=== PATIENT | female | born 2000 | race Caucasian/White ===

== ENCOUNTER → 2019-12-17 15:03 | Outpatient (CLI) | payer MEDICAID, SELFPAY ==
[2017-08-06 16:46] VITALS: BMI 32.3
[2019-12-17 16:24] LABS: hCG Titer Quant., Serum < 1 mIU/mL (1-3)
[2019-12-17 17:02] LABS: Probe Check PASS; Sample Adequacy Control PASS; Specimen Processing Control PASS; Trichomonas Vag DNA by PCR Negative (Negative)
[2019-12-17 17:26] LABS: Chlamydia Trachomatis by PCR Negative (Negative); Neisserai gonorrhoeae by PCR Negative (Negative); Probe Check PASS; Sample Adequacy Control PASS; Specimen Processing Control PASS
[2019-12-17 18:26] LABS: Free T3 3.3 pg/mL (2.18-3.98); T4 Free Direct 1.12 ng/dL (0.76-1.46); T4 Total, Thyroxin 12.2 ug/dL (4.8-13.9); Thyroid Stim Hormone (TSH) 1.54 uIU/mL (0.358-3.74)
[2019-12-18 02:10] LABS: Rapid Plasmin Reagin (RPR) NONREACTIVE (NONREACTIVE)
[2019-12-18 08:56] LABS: HIV - WCH Non-Reactive (Nonreactive); Hepatitis B Surface Antibody Non-Reactive
[2019-12-18 08:59] LABS: Hepatitis C Antibody REACTIVE (Nonreactive)
[2019-12-19 16:49] LABS: HSV 2 IgG 1.22 index (0.00-0.90)
[2019-12-20 03:07] LABS: HCV Quant. RNA PCR 130 IU/mL (.)
[2019-12-20 15:08] LABS: HCV log 10 2.114 (.)
== END ==
PROVIDERS: Visit Provider Obstetrics & Gynecology
DX: Z11.3 Encounter for screening for infections with a predominantly sexual mode of transmission (principal)
CPT/HCPCS: 36415; 84436; 84439; 84443; 84481; 84702; 86592; 86695; 86696; 86703; 86706; 86803; 87491; 87522; 87591; 87661

== ENCOUNTER 2019-12-29 09:00 | Outpatient (RCR) | payer MEDICAID, SELFPAY ==
[2017-08-06 16:46] VITALS: BMI 32.3
--- NOTE | 2019-12-29 09:00 | BH.COMM ---
Communication Note - Communication with Client Communication Note: Met with pt to complete intial paperwork. Also completed [place] Suicide Scale. Pt reports suicidal ideations which has been more frequent in the past week. Denies any active suicidal ideations, plan, or intent. Reports that she has thought about methods which primarily involve a gun in the past week. Reports that she does have access to a gun which is her father-in law's. We talked further and currently she is able to contract for safety, is future-oriented, and has protective factors. Hopeful and optimistic about IOP. Smiling and engaged. Call was placed to [id number] who reports that gun has a trigger lock and pt does not have access to the merritt.
--- NOTE | 2019-12-29 09:05 | BH.SGPN.GN ---
Behaviors/Verbalizations/Mental Status: []Eye contact is good. Motor activity is appropriate. Appearance is casual. Speech is Appropriate. Mood is anxious. Affect is congruent. Thoughts are linear and logical. No evidence of psychosis. Client Response/Progress/Benefit: []Client responded well to session, receptive to supportive feedback and engaged throughout session. Client reports feeling anxious today as client shared being in group situations gives client anxiety. Client received positive feedback from peers who offered client hope that anxiety will decrease. Client reports she came to IOP to learn how to better manage her anxiety and chronic suicidal ideations. Client shared she is also a recovering addict and client hopes IOP will give her tools to manage cravings to use. Client stated she has been sober for almost two months and she sees a therapist a [facility]. Client shared her aldo and her cat keeps client from acting on her suicidal thoughts. Appeared to benefit from connecting with peers and normalizing her emotions. Will continue IOP tx to prevent decompensation, maintain safety, and improve mood stability. Narrative Note: []
--- NOTE | 2019-12-29 10:08 | BH.SGPN.GN ---
Behaviors/Verbalizations/Mental Status: []Client alert and oriented, casually dressed and groomed. Eye contact good. Motor activity appropriate. Speech within normal limits. Affect congruent, mood anxious and depressed. Thoughts linear, logical, no signs of hallucinations or delusions. Client Response/Progress/Benefit: []Pt receptive to session, participating throughout. Provided input as the group brainstormed the positive and negative aspects of stress on physical and mental health. Group noted that distress can cause physical health impacts, result in increased negative thinking, lead to further avoidance, and impact emotion regulation. Shared benefits of stress as: increased motivation, improved resilience, improved self-esteem, and personal growth. Client?s current stressors included upcoming court date, maintaining sobriety, family issues, mental health, finances, and the current COVID-19 pandemic. Client reports belief that her stress jar is currently overflowing and impacting her ability to manage mental health sx. Client stated when stress is too high client would turn to substance use in the past. Appeared to benefit from gaining awareness of own current stressors and learning about the impact stress has on overall wellbeing. Progress noted as shown by client?s increased engagement in group. Recommend continued IOP tx to promote use of healthy coping skills, maintain sobriety, and to further reduce mental health symptoms. Narrative Note: []
--- NOTE | 2019-12-29 11:10 | BH.SGPN.GN ---
Behaviors/Verbalizations/Mental Status: []Client alert and oriented, casually dressed and groomed. Eye contact fair. Motor activity appropriate. Speech within normal limits. Affect congruent, mood anxious. Thoughts linear, logical, no signs of hallucinations or delusions. Client Response/Progress/Benefit: []Pt engaged participant in session as evidenced by pt listening attentively to others and providing input throughout session. Pt reported she currently john with stress by making music, texting friends, making art, playing with cat and coloring. Pt stated in the past she used drugs as her way of coping with stress. Pt could connect how unhealthy ways of coping with stress like avoidance and drugs increase stress level. Pt actively listening during discussion about the 4 A's of managing stress. Pt identified she will work on avoiding taking on others problems by setting boundaries. Pt seemed to benefit from increased awareness of the impact of stress on mental health and increasing repertoire of stress management strategies. Pt's first day in IOP. Pt to continue in IOP to prevent decompensation, increase healthy coping skills, and maintain sobriety. Narrative Note: []
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
[2019-12-31 10:35] VITALS: BP 120/62; PULSE 96; RESP 14
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
--- NOTE | 2019-12-31 11:50 | BH.PSY.EVA_ITS ---
Initial Treatment Plan - Patient Information Visit Information: ADMISSION DATE: EXPECTED LOS: 4-6 weeks - Problems/Symptoms Problem #1:: Depression Symptom:: Sadness, anhedoia, hopelessness, biological disruption of sleep, flee ting suicidal ideation Problem #2:: ANxiety Symptom:: WOrry, panic attacks, flashbacks, re-experiencing Problem #3:: chronic hallucinations Symptom:: self-harm thoughts, sucidal ideation
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
--- NOTE | 2020-01-02 09:10 | BH.SGPN.GN ---
Behaviors/Verbalizations/Mental Status: []Client alert and oriented, casual dress, hygiene tended to. Eye contact fair. Motor activity appropriate. Speech within normal limits. Affect congruent, mood anxious. Thoughts linear, logical, no signs of hallucinations or delusions. Reviewed client?s symptom tracker, client indicated a 1/5, with 5 being severe, for suicidal ideation and a 0/5 for suicidal intent. A 1/5 for suicidal thoughts is below pt's baseline which is a 4/5. Pt does not seem to be imminent risk to harm self or others. Client Response/Progress/Benefit: []Pt responded well to session AEB pt listening attentively to others and sharing thoughts with group. Pt identified a mental health positive is starting her psychiatric medications. Pt stated additional mental health positive as I already think IOP is helping me. Pt reported she has learned several skills since starting IOP which have helped her manage her emotions. Pt identified her current stressor is upcoming court date in which she is being charged with a felony. Pt stated she is nervous she will go to snf. Pt seemed to benefit from support from peers. Pt to continue IOP to increase healthy coping, challenge negative thinking and prevent decompensation. Narrative Note: []
--- NOTE | 2020-01-02 10:18 | BH.SGPN.GN ---
Behaviors/Verbalizations/Mental Status: [] Eye contact is good. Motor activity is appropriate. Appearance is casual. Speech is Appropriate. Mood is anxious, euthymic. Affect is congruent. Thoughts are linear and logical. No evidence of psychosis. Client Response/Progress/Benefit: []Pt was an active participant in group discussion and activity, taking notes throughout. Pt worked with peers on defining what goals are. Brainstormed with the group the benefits of goal-setting which included: increased motivation, feeling that longer term goals are more accomplishable, feel more accomplished, and increase positive thinking. Pt and group worked together to identify barriers impacting ability to reach goals as: external influences and other?s opinions, disqualifying small steps towards progress, setbacks, and unrealistic expectation. Noted connecting with barrier of fear of failure and getting caught up by mistakes. Able to provide feedback during psychoeducation on SMART goals and discussed importance of having deadlines for goals. Pt appeared to benefit from learning the mental health benefits of setting goals that are specific, measurable, attainable, relevant, and time-specific. Will continue in IOP to decrease depression, improve functioning, maintain sobriety, and prevent decompensation. Narrative Note: []
--- NOTE | 2020-01-02 11:18 | BH.SGPN.GN ---
Behaviors/Verbalizations/Mental Status: []Eye contact is good. Motor activity is appropriate. Appearance is neat. Speech is Appropriate. Mood is anxious. Affect is flat. Thoughts are linear and logical. No evidence of psychosis Client Response/Progress/Benefit: []Client was engaged and contributing to discussion when prompted. Provided appropriate feedback to peers and shared her goal with the group. Client chose the goal; to remain sober by doing her 12 steps once a day. When asked why this goal was important and beneficial to client's mental health she stated; she will have better relationships with her parents and she will be healthier. Identified the following barriers to completing this goal which included; triggers, urges to use, and friends who still use. Identified solutions to barriers which included; practicing calming coping skills, reading her 12 steps, focus on something positive, and reach out to healthy supports. Benefited from this group by practicing how to develop a short-term SMART goals related to mental health. Will continue IOP tx to prevent decompensation, improve mood stability, and reduce intensity and duration of symptoms. Narrative Note: []
--- NOTE | 2020-01-02 14:56 | BH.COMM ---
Communication Note - Communication with Client Communication Note: Pt met with therapist to review Safety Plan and discuss her plans for this evening. Pt denies any active SI, plan, or intent. Pt and therapist reviewed healthy coping skills and motivations for maintaining sobriety.
--- NOTE | 2020-01-05 09:14 | BH.SGPN.GN ---
Behaviors/Verbalizations/Mental Status: []Client alert and oriented, casual dress, hygiene tended to. Eye contact good. Motor activity appropriate. Speech within normal limits. Affect congruent, mood anxious, dysthymic. Thoughts linear, logical, no signs of hallucinations or delusions. Reviewed client?s symptom tracker, client indicated a 1/5, with 5 being severe, for suicidal ideation and a 0/5 for suicidal intent. A 1/5 for suicidal thoughts is below pt's baseline which is a 4/5. Pt does not seem to be imminent risk to harm self or others. Client Response/Progress/Benefit: []Pt responded well to session AEB pt listening attentively to others and sharing thoughts with group. Pt identified a mental health positive is staying sober throughout the weekend despite boredom causing increased urges to use. Shared she was able to distract herself with t.v. and playing with her cats. Pt stated additional mental health positive as I didn?t run away from home yet? which she expressed has been something she has done when feeling anxious and restless in the past. Reviewed importance of maintaining a healthy environment in preventing drug relapse. Pt identified her current stressor is upcoming court date in which she is being charged with a felony. Pt stated she is nervous she will go to detention but is trying to use reframing and positive self-talk to reduce anxiety. Pt seemed to benefit from support from peers and identifying mental health positives. Pt to continue IOP to increase healthy coping, challenge negative thinking and prevent decompensation. Narrative Note: []
--- NOTE | 2020-01-05 10:17 | BH.SGPN.GN ---
Behaviors/Verbalizations/Mental Status: []Client alert and oriented, neatly dressed and groomed. Eye contact good. Motor activity appropriate. Speech within normal limits. Affect congruent, mood euthymic. Thoughts linear, logical, no signs of hallucinations or delusions. Client Response/Progress/Benefit: []Client receptive of session, attentive in discussion and activity. Client discussed the quote and provided input that ?you can manage your emotions, but not hide how you feel.? Client shared he has stuffed her emotions before because she was afraid to be vulnerable. Discussed impact of ?stuffing? emotions which included overacting, anger outbursts, and ruined relationships. Client helped group identify barriers that impact one?s ability to communicate when emotions are high. These barriers included; shutting down, being ?snippy,? passive aggressive remarks, loud tone, misinterpretations, and negative thinking. Expressed that unmanaged emotions can negative impact personal relationships, worsen mental health, and impact other areas of functioning. Client participated in the activity and did well to manage emotions throughout. Client appeared to benefit from increasing awareness of how emotions can impact communication and practicing in the moment coping skills. Progress noted in client?s increase engagement during discussions and increase self-awareness. Will continue IOP tx to maintain sobriety, improve emotional regulation, and prevent decompensation. Narrative Note: []
--- NOTE | 2020-01-05 11:25 | BH.SGPN.GN ---
Behaviors/Verbalizations/Mental Status: []Client alert and oriented, casual dress, hygiene tended to. Eye contact fair. Motor activity appropriate. Speech within normal limits. Affect congruent, mood euthymic. Thoughts linear, logical, no signs of hallucinations or delusions. Client Response/Progress/Benefit: []Client engaged in session AEB client listening attentively to peer and providing input at times during session. Attentive during psychoeducation on 4 zones of regulation. Client able to identify how she feels in each zone as well as how she acts in each zone. Client able to identify what behaviors she exhibits when in the different emotional zones. Group identified coping skills can use to support self in each zone which included: opposite action, playing with pets, drawing, music, journaling, breathing techniques and puzzles. Client stated she is most often in a heightened state of alertness. Client stated she will focus on journaling to help when in low state of alertness. Benefited from increased education on zones of regulation or stages of alertness for emotions and healthy coping skills to use for each zone. Will continue IOP tx to increase healthy coping skills, maintain sobriety and prevent decompensation. Narrative Note: []
--- NOTE | 2020-01-05 14:54 | BH.MDN_ITS ---
Multi-Disciplinary Note - Note 30-min Individual Time Started:: 12:26 Date: 01/05/20 Purpose of session/treatment goals addressed:: Purpose of session was to assess pt's current symptoms and stressors. Other topics included: Discussing the role of environment in relapse prevention and completed cost/benefit analysis of current living situation. Eye Contact:: Good Motor Activity:: Appropriate Appearance:: Casual Speech:: Appropriate Mood:: Anxious, Irritable, Dysthymic Affect:: Congruent Thoughts:: Linear, Logical, No evidence of hallucinations/delusions noted Staff Interventions:: Therapist asked open ended questions to elicit pt's perception of current symptoms and stressors. Therapist used active listening and gave supportive feedback to validate pt emotions and gently challenge use of distortions. Provided psychoeducation on risk factors for substance use relapse and the role of environment on maintaining sobriety. Aided pt in completing cost/benefit analysis for current living situation and reviewed coping skills for managing frustrations and urges to use. Client Response:: Pt receptive of session, actively engaged throughout. She indicated ?I feel a lot better today, I think my meds are really starting to kick in? and went on to express that she has experienced a decrease in suicidal thoughts since beginning the IOP treatment program last week. Went on to note that she spent time coloring and playing with her cat over the weekend which helped with keeping her distracted but noted beginning to feel bored and restless. Attributes this to struggling with the restrictions her [id number] has implemented regarding strict limitations on where pt is able to go during the day. Shared knowing he does not want her to leave out of fear that she might relapse on drug use. Pt expressed that despite knowing he is doing what he feels is best for maintaining pt safety and sobriety, she feels trapped and as though she has lost all sense of independence. Expressed urges to say ?screw it? and move back to [place] to stay with a friend. Pt receptive of discussion on potential risk factors for relapse. Pt indicated understanding that returning to [place] would place her in a high risk environment around toxic supports as well as potential substance use and trauma related triggers. Pt open to completing a cost-benefit analysis regarding continuing to live with her [id number] and returning to [place]. Able to identify increased likelihood of relapse due to environment, easier access, and toxic people if she return to her prior living environment. Pt expressed reluctance to continue living in current living situation and shared openness to considering sober-living options in the area as well. Remainder of session spent reviewing activities pt could engage in to reduce boredom and make her current living environment more tolerable. Shared plans to obtain an electronic library card and begin learning to braid, as well as play with her cat this afternoon. Pt additionally receptive of resources for online NA support groups. Risks/Concerns:: Pt reports passive thoughts of suicide, but denies suicidal plan or intention to date. future focused. Additionally reports she has struggled with increased urges to use substances again however denies active plan, intention, or access to any substances. Shared motivation to make it to her upcoming court date on January 15 without relapsing. Agreeable to go to nearest emergency room or call 911 if unable to maintain safety. Progress Toward Goals/Plan:: Progress noted in pt continued sobriety and ap plication of mindfulness skills over the weekend. Pt reports reaching out to sober supports over the weekend which indicates progress as well. Pt has however expressed that she is beginning to struggle with feelings of boredom and restlessness which may be triggers for relapse. Continues to report motivation to stay sober and expresses her current living situation is supportive as well. Pt to continue IOP to increase use of healthy coping skills, increase consistent application of thought challenge strategies, maintain sobriety, and prevent decompensation. Time Stopped:: 12:59
== END 2020-01-06 23:59 ==
LOC: BHIOP 09:00
PROVIDERS: PCP Nurse Practitioner Family; Referring Provider Psychiatry & Neurology Psychiatry; Visit Provider Psychiatry & Neurology Psychiatry
DX: F25.0 Schizoaffective disorder, bipolar type (principal); F43.10 Post-traumatic stress disorder, unspecified; F15.90 Other stimulant use, unspecified, uncomplicated; F14.90 Cocaine use, unspecified, uncomplicated; F12.90 Cannabis use, unspecified, uncomplicated; F50.2 Bulimia nervosa; B19.20 Unspecified viral hepatitis C without hepatic coma; F17.210 Nicotine dependence, cigarettes, uncomplicated; Z79.899 Other long term (current) drug therapy
CPT/HCPCS: 90792; H0035; H2012; H2020; T1002; 90832

== ENCOUNTER 2020-01-08 09:00 | Outpatient (RCR) | payer MEDICAID, SELFPAY ==
[2017-08-06 16:46] VITALS: BMI 32.3
[2020-01-07 01:01] VITALS: BP 120/62; PULSE 96; RESP 14
--- NOTE | 2020-01-08 09:05 | BH.SGPN.GN ---
Behaviors/Verbalizations/Mental Status: []Client alert and oriented, casually dressed and groomed. Eye contact good. Motor activity appropriate. Speech within normal limits. Affect constricted, mood depressed and anxious. Thoughts linear, logical, no signs of hallucinations or delusions. Reviewed client?s symptom tracker, no risk for suicidal ideation, plan, or intent as of 01/08/20. Client Response/Progress/Benefit: [] Client responded well to session, receptive to emotional support and feedback. Client reports feeling anxious and depressed today. Client stated yesterday she got news that her father's cancer is getting worse. Client reported he refusing treatment which further increases client's anxiety about his health. Client shared this news brought on suicidal thoughts yesterday. Client reported she was proud of herself though, because client was able to get myself out of those thoughts. Client stated she used art, positive music, and cleaning to help her cope with her depression and suicidal thoughts. Client was receptive to emotional support from peers and feedback on the benefits of grief counseling. Client reports she would like to check out grief counseling to help client process her emotions and concerns. Appeared to benefit from connecting with peers and learning about new supports. Will continue IOP tx to prevent decompensation, maintain safety, and increase healthy coping skills. Narrative Note: []
--- NOTE | 2020-01-08 10:12 | BH.SGPN.GN ---
Behaviors/Verbalizations/Mental Status: []Client alert and orient. Appearance casual and appropriately groomed. Speech an appropriate rate and tone, quite. Motor activity WNL. Mood anxious, depressed, affect congruent to mood. No evidence of delusion or hallucinations.? Client Response/Progress/Benefit: []Pt receptive of session, engaged throughout the discussion on the importance of healthy communication however appeared disengaged AEB providing less input than usual. Appearing distracted by own thoughts at times. Pt listened as the group defined healthy communication and it?s various attributes. Group discussed benefits of healthy communications on mental health and maintaining healthy relationships which included: improved mood, increased ability to get your point across, needs are more likely to be met, increased ability to collaborate with others, and healthier relationships. Pt receptive of and appeared to benefit from psychoeducation portion discussing different styles of communication, nodding throughout and provided an example. Progress limited due to difficulties in engagement though was able to identify personal communication style. Pt noted identifying with assertive communication. Pt shared previously utilizing aggressive communication but has been making efforts to be more assertive rather than aggressive to avoid hurting others. Pt to continue in IOP tx to continue to promote healthy change behaviors, promote mood stability, maintain sobriety, and prevent decompensation. Narrative Note: []
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
--- NOTE | 2020-01-09 11:15 | BH.SGPN.GN ---
Behaviors/Verbalizations/Mental Status: []Client alert and oriented, casual dress, hygiene tended to. Eye contact fair. Motor activity appropriate. Speech within normal limits. Affect congruent, mood euthymic. Thoughts linear, logical, no signs of hallucinations or delusions. Client Response/Progress/Benefit: []Pt responded well to session AEB pt listening attentively to others and providing input during discussion at times. Pt stated now that she uses assertive communication she believes it has helped improve her relationships and is able to ask for help when needed. Pt reported by being more assertive her needs get met more frequently. Pt worked with group to identify strategies to improve communication. Pt stated she will continue to improve her assertive communication by setting boundaries. Pt to continue IOP to maintain sobriety, increase coping skills, and prevent decompensation. Narrative Note: []
--- NOTE | 2020-01-27 11:17 | BH.SGPN.GN ---
Behaviors/Verbalizations/Mental Status: []Client alert and oriented, casual dress, hygiene tended to. Eye contact good. Motor activity appropriate. Speech within normal limits. Affect constricted, mood dysthymic. Thoughts linear, logical, no signs of hallucinations or delusions. Client Response/Progress/Benefit: []Client responded well to session, attentive and engaged throughout session. Group shared that if one does not recognize their strengths, it could lead to increased mental health symptoms, and giving up on goals. Client able to identify personal strengths she possesses which includes: artistic, honest, brave, confident, and open-minded. Client stated she used to struggle with identifying personal strengths, but with rehearsal it is now easier to identify self-positives. Appeared to benefit from recognizing personal strengths and identifying strategies to improve strengths. Progress noted as shown by client being able to identify personal strengths easier. Pt is to discharge from program today due to deciding to move to a different city today. Narrative Note: []
== END 2020-01-09 15:00 | disposition home or self-care (01) ==
LOC: BHIOP 09:00
PROVIDERS: PCP Nurse Practitioner Family; Referring Provider Psychiatry & Neurology Psychiatry; Visit Provider Psychiatry & Neurology Psychiatry
DX: F25.0 Schizoaffective disorder, bipolar type (principal); F43.10 Post-traumatic stress disorder, unspecified; F15.90 Other stimulant use, unspecified, uncomplicated; F12.90 Cannabis use, unspecified, uncomplicated; F11.90 Opioid use, unspecified, uncomplicated; F50.2 Bulimia nervosa; Z79.899 Other long term (current) drug therapy
CPT/HCPCS: H2020

== ENCOUNTER 2020-01-27 09:00 | Outpatient (RCR) | payer MEDICAID, SELFPAY ==
[2017-08-06 16:46] VITALS: BMI 32.3
--- NOTE | 2020-01-27 12:04 | BH.MDN_ITS ---
Multi-Disciplinary Note - Note 45-min Individual Time Started:: 10:23 Date: 01/27/20 Purpose of session/treatment goals addressed:: The purpose of this session was to address current symptoms, stressors, and discuss pt new plans for relocation. Another goal was to provide psychoeducation on relapse prevention and work with pt to complete a relapse prevention plan, as well as establish outpatient counseling. Eye Contact:: Good Motor Activity:: Appropriate Appearance:: Casual Speech:: Appropriate Mood:: Euthymic, Anxious Affect:: Full Thoughts:: Linear, Logical, No evidence of hallucinations/delusions noted Staff Interventions:: Therapist used active listening and open-ended questions to explore client's current stressors, symptoms, and updates since last in IOP program. Therapist provided supportive feedback and empathic responses to validate pt emotions. Gently challenged pt use of use of distortions and rationalizations. Therapist provided psychoeducation on warning signs and common triggers for substance use relapse as well as aided pt in completing a Relapse Prevention Plan. Worked with pt to establish after outpatient counseling services and provided resources for counseling and AA support groups in the [place] area. Client Response:: Client responded well to session, open to meeting with therapist and actively engaged throughout. Client shared she is excited today as she just discovered she would be able to move in with her friend, Raman, who lives in [place]. Pt went on to indicate plans to complete the move following IOP group on this date. She indicated some disappointment that she would no longer be able to remain in the IOP program as a result and expressed a desire to continue to seek outpatient counseling services following her relocation. Upon further inquiry regarding events leading up to her decision to move, pt reports that her current living situation is ?too controlling?. Shared her boyfriend?s father has several restrictions making it difficult for her to feel independent. She noted that although staying there had helped to keep her sober, she feels the environment was toxic to her mental health. Appears to lack insight that [place] is also potentially toxic as this is where she was actively using alcohol and other drugs. Upon being challenged on whether [place] could become a trigger for relapse, pt was adamant in stating that she would have the support and skills to refrain from relapsing. Pt was receptive of psychoeducation provided on common relapse warning signs and triggers such as returning to past locations of previous use or being around people previously using with. Pt expressed understanding, though remained adamant that she would be okay to move despite potential relapse risk. Willing to work with therapist to complete relapse prevention plan, as well as establish aftercare services. Pt identified several potential relapse warning signs, triggers to avoid, as well as healthy coping skills to use if experiencing an urge to begin using again. Pt reports that prayer, talking to sober supports, music, and journaling have been her ?go-to coping skills?. Willing to call [facility] in [place] to re-establish care as pt is a former client with the agency. Unable to be reached so a discrete message was left encouraging that they call pt back. Additionally provided with AA resources. Risks/Concerns:: Client denies any active suicidal ideations, plan, or intent as of 01/27/20. Laughing at times in session and future oriented throughout session. Pt is 3 months sober and moving to place of prior use which increases potential for relapse. Progress Toward Goals/Plan:: Client first day back in IOP program since previous discharge last month. Pt indicated that this would be her last day in IOP progr am as she is moving to [place]. Pt lacks insight that this could be a possible relapse trigger. Pt is recommended to continue with both outpatient mental health and substance use counseling. Provided with resources for counseling and AA support groups in the [place] area.
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
--- NOTE | 2020-01-28 09:06 | BH.SGPN.GN ---
Behaviors/Verbalizations/Mental Status: []Client alert and oriented, appropriately groomed and casual in appearance. Eye contact good. Motor activity appropriate. Speech within normal limits. Affect congruent, mood euthymic. Thoughts linear, logical, no signs of hallucinations or delusions. Reviewed daily symptom tracker and client denies suicidal ideation, plan, or intent at this time. Client Response/Progress/Benefit: []Pt receptive of session, engaged throughout AEB listening to others share, nodding when agreeing or able to relate, and openly processing with the group. Identified emotion for the day as ?excited? as she has plans to increase her ability to spend time with supports. Pt did well to identify current mental health wins and indicated that one win was almost reaching her 90 days sober milestone and expressed that she will achieve that next week. Pt noted that reminding herself of the consequences of using and her motivations not to has been most helpful in preventing relapse. Shared that music and art has helped as well. Pt noted that another win is being able to challenge herself not to engage in an ?unnecessary argument? with her boyfriend?s father and instead was able to successfully walk away. Shared reminding herself ?it?s not worth it? and positive self-talk helped in doing so. Expressed that a current stressor is anxiety about remembering to continue to apply her healthy coping skills in the moment. Pt reports plans to Appeared to benefit from group support and identifying areas of progress. Recommended continued IOP tx to further promote healthy change behaviors, maintain stability, and prevent decompensation.?? Narrative Note: []
== END 2020-01-27 16:00 | disposition home or self-care (01) ==
LOC: BHIOP 09:00
PROVIDERS: PCP Nurse Practitioner Family; Referring Provider Psychiatry & Neurology Psychiatry; Visit Provider Psychiatry & Neurology Psychiatry
DX: F25.0 Schizoaffective disorder, bipolar type (principal); F43.10 Post-traumatic stress disorder, unspecified; F50.2 Bulimia nervosa; F15.90 Other stimulant use, unspecified, uncomplicated; F11.90 Opioid use, unspecified, uncomplicated; F12.90 Cannabis use, unspecified, uncomplicated
CPT/HCPCS: H0035; H2012; 90834